=== PATIENT | female | born 1975 | race Caucasian/White ===

== ENCOUNTER 2020-11-06 17:38 | Emergency (ER) | payer OTHER ==
--- NOTE | 2020-11-06 18:24 | EDM.PDOC ---
ED HPI GENERAL MEDICAL PROBLEM - General Chief Complaint: Fever Stated Complaint: COVID Time Seen by Provider: 11/06/20 18:03 Source of Information: Reports: Patient, Family History Limitations: Reports: No Limitations - History of Present Illness INITIAL COMMENTS - FREE TEXT/NARRATIVE: 45 yo female present to ER 10 days post initial symptoms of COVID. She has fevered every day. very fatigue. denies SOB or cough. has had one episode of diarrhea since onset normal BMs recently. She does urinate at least one time every 8 hours. denies Pain Score (Numeric/FACES): 0 - Related Data Allergies Allergy/AdvReac Type Severity Reaction Status Date / Time No Known Allergies Allergy Verified 11/06/20 17:51 Home Meds: Home Meds Cetirizine HCl [Zyrtec] 10 mg PO DAILY 11/06/20 [History] norgestimate-ethinyl estradioL [Tri-Sprintec Tablet] 1 tab PO DAILY 11/06/20 [History] Past Medical History HEENT History: Reports: Impaired Vision Gastrointestinal History: Reports: Other (See Below) Other Gastrointestinal History: constipation Genitourinary History: Reports: Other (See Below) Other Genitourinary History: D and C [employer] History: Reports: , Spontaneous - Infectious Disease History Infectious Disease History: Reports: Chicken Pox - Past Surgical History GI Surgical History: Reports: Cholecystectomy Social & Family History - Tobacco Use Tobacco Use Status *Q: Never Tobacco User Second Hand Smoke Exposure: No - Caffeine Use Caffeine Use: Reports: Coffee - Alcohol Use Days Per Week of Alcohol Use: 2 Number of Drinks Per Day: 2 Total Drinks Per Week: 4 - Recreational Drug Use Recreational Drug Use: No ED ROS GENERAL - Review of Systems Review Of Systems: See Below Constitutional: Reports: Fever, Chills, Malaise, Fatigue HEENT: Reports: Sinus Problem Respiratory: Reports: Shortness of Breath, Wheezing, Cough Cardiovascular: Reports: Chest Pain, Edema GI/Abdominal: Denies: Abdominal Pain, Anorexia, Diarrhea Skin: Denies: Rash ED EXAM, GENERAL - Physical Exam Exam: See Below Exam Limited By: No Limitations General Appearance: Alert, WD/WN, No Apparent Distress Course - Vital Signs Last Recorded V/S: Last Vital Signs Temp 36.5 C 11/06/20 17:49 Pulse 72 11/06/20 17:49 Resp 16 11/06/20 17:49 BP 85/53 L 11/06/20 17:49 Pulse Ox 95 11/06/20 17:49 - Orders/Labs/Meds Labs: Laboratory Tests 11/06/20 11/06/20 Range/Units 18:51 18:51 WBC 3.4 L (4.5-11.0) K/uL RBC 4.73 (3.30-5.50) M/uL Hgb 12.7 (12.0-15.0) g/dL Hct 40.6 (36.0-48.0) % MCV 86 (80-98) fL MCH 27 (27-31) pg MCHC 31 L (32-36) % Plt Count 272 (150-400) K/uL Neut % (Auto) 73.0 H (36-66) % Lymph % (Auto) 19.3 L (24-44) % [place] % (Auto) 6.8 H (2-6) % Eos % (Auto) 0.0 L (2-4) % Baso % (Auto) 0.9 (0-1) % Sodium 141 (140-148) mmol/L Potassium 3.0 L (3.6-5.2) mmol/L Chloride 101 (100-108) mmol/L Carbon Dioxide 29 (21-32) mmol/L Anion Gap 14.0 (5.0-14.0) mmol/L BUN 9 (7-18) mg/dL Creatinine 0.9 (0.6-1.0) mg/dL Est Cr Clr Drug Dosing 72.53 mL/min Estimated GFR (MDRD) > 60 (>60) Glucose 116 H (74-106) mg/dL Calcium 8.4 L (8.5-10.1) mg/dL Total Bilirubin 0.3 (0.2-1.0) mg/dL AST 114 H (15-37) U/L ALT 152 H (12-78) U/L Alkaline Phosphatase 85 (46-116) U/L Total Protein 6.7 (6.4-8.2) g/dL Albumin 2.5 L (3.4-5.0) g/dL Globulin 4.2 H (2.3-3.5) g/dL Albumin/Globulin Ratio 0.6 L (1.2-2.2) Meds: Medications Discontinued Medications Generic Name Dose Route Start Last Admin Trade Name Travis PRN Reason Stop Dose Admin Potassium Chloride 40 meq 11/06/20 19:34 11/06/20 19:49 Potassium Chloride 20 Meq Tab.Er PO 11/06/20 19:35 40 meq ONETIME ONE Administration - Re-Assessments/Exams Free Text/Narrative Re-Assessment/Exam: 11/06/20 19:51 comfortable throughout visit. oral Potassium replacement. Liver enzymes mildly elevated, she has been taking tylenol ~3000 mg per day for 10 days, encouraged decrease use of tylenol use of ibuprofen for fever control. 11/06/20 19:54 Departure - Departure Time of Disposition: 19:42 Disposition: Home, Self-Care 01 Condition: Good Clinical Impression: COVID-19 - Discharge Information *PRESCRIPTION DRUG MONITORING PROGRAM REVIEWED*: Not Applicable *COPY OF PRESCRIPTION DRUG MONITORING REPORT IN PATIENT GARRETT: Not Applicable Instructions: COVID-19 Vaccine Information, 10 Things You Can Do to Manage Your COVID-19 Symptoms at Home - [facility] Referrals: PCP,None [Primary Care Provider] - Forms: ED Department Discharge Additional Instructions: your potassium was mildly low: potassium can be found in green vegetables liver enzymes were also elevated, decrease tylenol intake utilize ibuprofen for fever control prednisone taper starting tomorrow morning maintain fluid intake rest Sepsis Event Note (ED) - Evaluation Sepsis Screening Result: No Definite Risk - Focused Exam Vital Signs: Vital Signs Temp Pulse Resp BP Pulse Ox 11/06/20 17:49 36.5 C 72 16 85/53 L 95
[2020-11-06] MEDS ORDERED: Potassium Chloride 20 MEQ Tab.ER PO ONE (19:34)
== END 2020-11-06 20:06 | disposition home or self-care (01) ==
LOC: JP.ED 17:38
DX: U07.1 COVID-19 (principal)
CPT/HCPCS: 36415; 80053; 85025; 99283; A9270

== ENCOUNTER 2023-06-27 17:47 | Emergency (ER) | payer BC, OTHER ==
[2023-06-27] MEDS ORDERED: predniSONE 20 MG Tab PO ONE (18:51)
== END 2023-06-27 19:28 | disposition home or self-care (01) ==
LOC: JP.ED 17:47
DX: T78.40XA Allergy, unspecified, initial encounter (principal)
CPT/HCPCS: 99282; 99283; J7512

== ENCOUNTER 2024-04-06 07:32 | Day surgery (SDC) | payer BC ==
[~2024-04-06 07:32] MED LIST: Midazolam 1 MG/ML 2 ML SDV ONE; Propofol 200 MG/20 ML SDV ONE; fentaNYL 50 MCG/ML SDV ONE
[2024-04-06] MEDS: Lactated Ringers 1,000 ML IV SCH (08:08)
== END 2024-04-06 10:48 | disposition home or self-care (01) ==
LOC: JP.SDS 07:32
PROVIDERS: ATTEND Surgery
DX: Z12.11 Encounter for screening for malignant neoplasm of colon (principal); K63.5 Polyp of colon; E66.9 Obesity, unspecified
CPT/HCPCS: 00811-QZ; 88305; J2250; J2704; J3010; J7120